=== PATIENT | male | born 1975 | race Caucasian/White ===

== ENCOUNTER 2022-09-18 08:29 | Day surgery (SDC) | payer BC ==
[2022-09-18] VITALS (9 sets, daily range): BP systolic 114–148; BP diastolic 79–95; PULSE 72–91; TEMP 98.9
[~2022-09-18] VITALS: Ht 188.1 cm; Wt 143.1 kg
[2022-09-18 09:26] LABS: HEMATOCRIT 45.9 % (42.0-52.0); HEMOGLOBIN 16.1 g/dl (13.5-18.0); MEAN CELL VOLUME 77 fl (80.0-100.0); MEAN CORPUSCULAR HEMOGLOBIN 27 pg (27-31); MEAN CORPUSCULAR HGB CONC 35 g/dl (33.0-37.0); PLATELET COUNT 275 K/mm3 (130-400); RED BLOOD COUNT 5.95 M/mm3 (4.20-5.60); REDCELL DISTRIBUTION WIDTH-CV 13.1 % (11.5-14.5)
[2022-09-18 09:35] LABS: CALCIUM 9.2 mg/dL (8.4-10.2); CREATININE, serum 0.82 mg/dL (0.72-1.25); POTASSIUM 4.2 mmol/L (3.5-4.5)
[2022-09-18] MEDS ORDERED: PRINIVIL40 MG PO (09:36)
[2022-09-18] MEDS ORDERED: GLUCOPHAGE500 MG/TAB PO (09:37)
[2022-09-18] MEDS ORDERED: LIPITOR 40MG TA40 MG PO (09:38)
[2022-09-18] MEDS ORDERED: COREG12.5 MG PO (09:38)
[2022-09-18] MEDS ORDERED: PROCARDIA XL 3030 MG PO (09:39)
[2022-09-18] MEDS ORDERED: ASPIRIN E.C. 8181 MG PO (09:39)
[2022-09-18 09:42] LABS: INR 1.1 (0.8-3.0); PROTHROMBIN TIME 12.2 SECONDS (9.7-12.8)
[2022-09-18 09:45] LABS: PARTIAL THROMBOPLASTIN TIME 30.7 SECONDS (26.0-37.0)
--- NOTE | 2022-09-18 10:03 | NUR ---
BASELINE VITALS TAKEN IN [facility], SEE MERGE FOR BASELINE ETCO2. SEE MERGE FOR ALL PROCEDURAL VITALS, MEDICATIONS, INTERVENTIONS AND ETCO2. PATIENT NOTED TO HAVE HOME BIPAP USE, RT HAS HOPITAL BIPAP ON STAND BY OUTSIDE CATHLAB ROOM 1 IF IN NEED DURING PROCEDURE. NOTED IN PATIENT MAR THAT PATIENT TOOK HOME 81MG ASPRIN AND WAS GIVEN BY [facility] NURSE ORDERED 325MG OF ASPRIN PREPROCEDURE WELL.
--- NOTE | 2022-09-18 14:30 | NUR ---
Sergo is ready to go. TR band is deflated, and site dressed with bandaid, folded 2x2 and coban. I have reviewed dc/rx and fu instructions with him and he verbalized understanding. Sergo has been up and is steady on his feet. I escorted him to exit via wheelchair at this time.
== END 2022-09-18 18:30 | disposition home or self-care (01) ==
LOC: COL.CAR 08:29
PROVIDERS: Internal Medicine Cardiovascular Disease
DX: I25.10 Atherosclerotic heart disease of native coronary artery without angina pectoris (principal); I42.9 Cardiomyopathy, unspecified; I21.4 Non-ST elevation (NSTEMI) myocardial infarction; R94.39 Abnormal result of other cardiovascular function study
CPT/HCPCS: J1644; J2250; J3010; Q9967